=== PATIENT | female | born 1990 | race Caucasian/White ===

== ENCOUNTER → 2022-04-18 18:57 | Outpatient (CLI) | payer BC, SELFPAY ==
--- NOTE | 2022-04-18 19:15 | DI.RAD_ITS ---
Exam(s) XR WRIST RT COMPL NAVICULAR EXAM: XR WRIST RT COMPL NAVICULAR CLINICAL HISTORY: wrist injury TECHNIQUE: COMPARISON: No exams were available for comparison FINDINGS: Four views were obtained. There is a fixation screw in the navicular,this appears well seated. Ther e is no evidence of acute fracture or dislocation. IMPRESSION: RADIATION DOSE DELIVERED: Total DLP
--- NOTE | 2022-04-18 19:42 | DI.VRAD_ITS ---
PROCEDURE INFORMATION: Exam: XR Right Wrist Exam date and time: 04/18/2022 7:29 PM Age: 32 years old Clinical indication: Injury or trauma; Fall; Sprain or strain; Right; Injury date: 04/18/22; Prior surgery; Surgery date: 6+ months; Surgery type: 2015 wrist; Additional info: Injury right wrist TECHNIQUE: Imaging protocol: Radiologic exam of the Right wrist. Views: 3 or more views. COMPARISON: No relevant prior studies available. FINDINGS: Bones/joints: No acute fractures are identified. Variable pitch screw fixation of the scaphoid without gross hardware complication. Carpal relationships are normal. Distal radioulnar alignment is normal. No blastic or lytic lesions. No gross erosive changes. Soft tissues: No periostitis or osteolysis. No gross soft tissue abnormalities. No radiopaque foreign bodies. IMPRESSION: No acute findings. Dictated and Authenticated by: Shimon Payne MD. Ordering:ANGELO Orantes MD
== END ==
LOC: LBN 19:12 → DI 19:17
PROVIDERS: Visit Provider Physician Assistant
DX: S69.91XA Unspecified injury of right wrist, hand and finger(s), initial encounter (principal); X58.XXXA Exposure to other specified factors, initial encounter
CPT/HCPCS: 73110

== ENCOUNTER 2022-07-14 15:40 | Outpatient (REF) | payer BC, SELFPAY ==
[2022-07-14 18:54] LABS: HCT 41.5 % (36.0-46.0); HGB 13.7 g/dL (11.2-15.7); MCH 28.9 pg (27.0-33.0); MCV 88 fL (80-95); Platelet Count 367 10^3/uL (130-400); RBC 4.74 10^6/uL (3.93-5.22); RDW 13.2 % (11.7-14.6); RDW-SD 42.3 fL
[2022-07-14 19:11] LABS: Hemoglobin A1C 4.9 % (<5.7)
[2022-07-14 19:12] LABS: Iron 43 ug/dL (50-170); Total Iron Binding Capacity 339 ug/dL (250-450); Transferrin Sat 13 % (15-50)
[2022-07-14 19:35] LABS: Vitamin D 25 Total 76.1 ng/mL (30-100)
[2022-07-14 20:02] LABS: Ferritin 86 ng/mL (8-252); TSH 2.91 uIU/mL (0.36-3.74); Vitamin B12 630 pg/mL (193-986)
[2022-07-14 20:05] LABS: Folate > 20.0 ng/mL (8.6-20.0)
[2022-07-14 20:21] LABS: FREE T4 0.98 ng/dL (0.76-1.46)
== END 2022-07-14 15:41 | disposition home or self-care (01) ==
LOC: NCHCN 15:40
PROVIDERS: Visit Provider Nurse Practitioner Family
DX: R53.83 Other fatigue (principal)
CPT/HCPCS: 82306; 85027; 82607; 82728; 82746; 83036; 83540; 83550; 84439; 84443

== ENCOUNTER 2022-08-25 17:09 | Outpatient (REF) | payer BC, MEDICAID, SELFPAY ==
[2022-08-25 18:49] LABS: Abs Immature Grans 0.05 10^3/uL (0.0-0.06); Absolute Basophil Count 0.04 10^3/uL (0.0-0.2); Absolute Eosinophil Count 0.18 10^3/uL (0.0-0.7); Absolute Lymphocyte Count 2.76 10^3/uL (1.2-3.4); Absolute Monocyte Count 0.62 10^3/uL (0.1-0.8); Absolute Neutrophil Count 6.75 10^3/uL (1.2-6.7); Basophils % 0.4; Eosinophils % 1.7; HCT 42.7 % (36.0-46.0); HGB 14.3 g/dL (11.2-15.7); Immature Grans % 0.5; Lymphocytes % 26.5; MCH 29.4 pg (27.0-33.0); MCHC 33.5 % (32.0-36.0); MCV 88 fL (80-95); Neutrophils % 64.9; Platelet Count 366 10^3/uL (130-400); RBC 4.87 10^6/uL (3.93-5.22); RDW 13.2 % (11.7-14.6); RDW-SD 42.5 fL
== END 2022-08-25 17:10 | disposition home or self-care (01) ==
LOC: NCHCN 17:09
PROVIDERS: Visit Provider Nurse Practitioner Family
DX: R53.83 Other fatigue (principal); Z86.2 Personal history of diseases of the blood and blood-forming organs and certain disorders involving the immune mechanism
CPT/HCPCS: 85025

== ENCOUNTER 2022-09-04 18:40 | Outpatient (CLI) | payer BC, MEDICAID, SELFPAY ==
--- NOTE | 2022-09-04 18:30 | RT.EKG_ITS ---
APPROVED REPORT Exam: Resting ECG Reason for Exam: Palpitations Patient Location: O HR:83 bpm ECG Measurements Heart Rate 83 AXIS [place] 144 P 44 QRSd 103 QRS 32 QT 378 T 27 QTc 445 Conclusion Sinus rhythm...normal P axis, V-rate 50- 99 Occasional PVCs RSR prime V1 and V2, normal variant
== END 2022-09-04 18:41 | disposition home or self-care (01) ==
LOC: DI.CM 18:40
PROVIDERS: Visit Provider Nurse Practitioner Family
DX: R07.89 Other chest pain (principal)
CPT/HCPCS: 93010

== ENCOUNTER 2022-09-09 03:09 | Outpatient (CLI) | payer BC, MEDICAID, SELFPAY ==
[2022-09-09 15:49] LABS: Anion Gap 11.6 mmol/L (3-11); BUN 13 mg/dL (7-18); CO2 20.4 mmol/L (21.0-32.0); CREATININE 1.3 mg/dL (0.55-1.02); Calcium 9.4 mg/dL (8.5-10.1); Chloride 107 mmol/L (98-107); Estimated GFR 56.03 (mL/min/1.73m2); Glucose 115 mg/dL (74-106); Magnesium 1.9 mg/dL (1.8-2.4); Potassium 3.3 mmol/L (3.5-5.1); Sodium 139 mmol/L (136-145)
== END 2022-09-09 03:10 | disposition home or self-care (01) ==
PROVIDERS: Visit Provider Nurse Practitioner Family
DX: R00.2 Palpitations (principal); E03.9 Hypothyroidism, unspecified; F41.8 Other specified anxiety disorders
CPT/HCPCS: 36415; 80048; 83735

== ENCOUNTER 2022-09-12 19:41 | Emergency (ER) | payer BC, MEDICAID, SELFPAY ==
[2022-09-12] VITALS (19 sets, daily range): BP systolic 106–123; BP diastolic 50–75; PULSE 77–93; RESP 15–27; O2SAT 98–100
--- NOTE | 2022-09-12 19:30 | RT.EKG_ITS ---
APPROVED REPORT Exam: Resting ECG Reason for Exam: Palpitations Patient Location: E HR:83 bpm ECG Measurements Heart Rate 83 AXIS ME 141 P 40 QRSd 99 QRS 4 QT 384 T 4 QTc 453 Conclusion Sinus rhythm...normal P axis, V-rate 60- 99 Multiple ventricular premature complexes...V complexes w/ short R-R intervls Low voltage, precordial leads...precordial leads <1.0mV Normal Fine Nonspecific ST-T changes
--- NOTE | 2022-09-12 20:05 | ED.GENADUL_ITS ---
Discharge Plan Disposition Patient Disposition: Home Discharge Details Clinical Impression: Palpitations Primary Care Provider: Marli Conner ED Provider: Shirlene Olivas Home Meds and New Rx's Prescriptions: Continued acetazolamide 250 mg tablet 250 mg PO DAILY dextroamphetamine-amphetamine [Adderall XR] 20 mg capsule,extended release 24hr 20 mg PO DAILY escitalopram oxalate 20 mg tablet 20 mg PO DAILY ferrous sulfate [Iron (ferrous sulfate)] 325 mg (65 mg iron) tablet 65 mg PO DAILY norethindrone-e.estradiol-iron [Uzma Fe 06/06 (28)] 1 mg-20 mcg (21)/75 mg (7) tablet 1 tab PO DAILY loratadine 10 mg tablet 10 mg PO DAILY pantoprazole 40 mg tablet,delayed release (DR/EC) 80 mg PO DAILY Rx Instructions: 20 mg AM - 20 mg PM sertraline 25 mg tablet 25 mg PO DAILY montelukast [Singulair] 10 mg tablet 10 mg PO DAILY levothyroxine [Synthroid] 50 mcg tablet 50 mcg PO DAILY cholecalciferol (vitamin D3) 125 mcg (5,000 unit) capsule 125 mcg PO DAILY topiramate 100 mg tablet 150 mg PO DAILY Discharge Instructions Instructions: Heart Palpitations (ED) Additional Instructions: At this time no evidence for heart abnormality, you were observed for over 2 hours here in the emergency department and maintained normal sinus rhythm. This may be due to anxiety. Follow up with primary care provider in 3-5 days. Return to ED sooner if any worsening or concerns. Increase oral fluids. No evidence of infection on your lab work. No evidence of blood clots or infection in your lungs. Referrals: Marli Conner [Primary Care Provider] - 3 days Discharge Data Discharge Date/Time-TO BE ENTERED AT DEPARTURE: 09/12/22 22:40 Medical Decision Making 32-year-old female with a past medical history of iron deficiency anemia who is on control who is a non-smoker presents to the ER with chief complaint of palpitations and headache which began earlier on Heart rate upon arrival is 78 and normal sinus rhythm. No ectopy. Work-up ordered including CBC CMP TSH D-dimer urinalysis UDS EKG. Her blood cell count 11.01, neutrophil 7.24 D-dimer slightly elevated at 554, will order CT and rule out PE TSH within normal limits, urine drug screen negative. Troponin less than 50 potassium 3.3, 40 mEq potassium p.o. was given. Patient was given a liter of fluid and 0.5 of lorazepam. Patient feels better after reevaluation. Discussed home care follow-up care she verbalized understanding. This text was generated using [employer] system, please disregard any oddities of phrase or misspellings. Medical Records Medical records reviewed: Yes I reviewed the patient's medical records. Imaging Data Radiologic Study: Imaging: CT Scan Radiologist's impression: FINDINGS: Pulmonary arteries: There is motion artifact. No pulmonary embolism is identified. Aorta: Evaluation of the ascending thoracic aorta is limited secondary to motion. No aneurysm. Lungs: Unremarkable. No consolidation. No masses. Pleural spaces: Unremarkable. No pneumothorax. No pleural effusion. Heart: No pericardial effusion. Lymph nodes: Unremarkable. No enlarged lymph nodes. Bones/joints: Unremarkable. No acute fracture. Soft tissues: There is some wall prominence to the distal esophagus which should be correlated with any concern for esophagitis. There is increased density within the stomach. This is usually secondary to ingested products but should be correlated with any concern for blood products. There is hepatic steatosis. IMPRESSION: 1. No pulmonary embolism identified. 2. Some wall prominence to the distal esophagus which should be correlated with any concern for esophagitis. 3. There is increased density within the stomach. This is usually secondary to ingested products but should be correlated with any concern for blood products. 4. Hepatic steatosis. Other findings/details as above. Thank you for allowing us to participate in the care of your patient. Dictated and Authenticated by: Jessica Wilson MD Lab Data Lab results reviewed: Yes I reviewed the patient's lab results. Labs: Laboratory Tests Range/Units 09/12/22 09/12/22 09/12/22 20:00 20:00 20:00 WBC (4.4-10.8) 10^3/uL 11.01 H RBC (3.93-5.22) 10^6/uL 4.84 Hgb (11.2-15.7) g/dL 13.8 Hct (36.0-46.0) % 41.8 MCV (80-95) fL 86 MCH (27.0-33.0) pg 28.5 MCHC (32.0-36.0) % 33.0 RDW (11.7-14.6) % 13.1 Plt Count (130-400) 10^3/uL 327 MPV (8.0-11.0) fL 8.8 Immature Gran % 0.4 Neutrophils % 65.8 Lymphocytes % 26.6 Monocytes % 5.4 Eosinophils % 1.3 Basophils % 0.5 Nucleated RBC % (0.0-0.3) % 0.0 Absolute Neutrophils (1.2-6.7) 10^3/uL 7.24 H Absolute Lymphocytes (1.2-3.4) 10^3/uL 2.93 Absolute Monocytes (0.1-0.8) 10^3/uL 0.59 Absolute Eosinophils (0.0-0.7) 10^3/uL 0.14 Absolute Basophils (0.0-0.2) 10^3/uL 0.06 D-Dimer (<500) ng/mlFEU 554 H Sodium (136-145) mmol/L 138 Potassium (3.5-5.1) mmol/L 3.3 L Chloride (98-107) mmol/L 106 Carbon Dioxide (21.0-32.0) mmol/L 22.9 Anion Gap (3-11) mmol/L 9.1 BUN (7-18) mg/dL 12 Creatinine (0.55-1.02) mg/dL 1.1 H Est GFR (CKD-EPI 2020) (mL/min/1.73m2) 68.47 Glucose (74-106) mg/dL 92 Calcium (8.5-10.1) mg/dL 9.2 Magnesium (1.8-2.4) mg/dL 2.0 Total Bilirubin (0.2-1.0) mg/dL 0.2 AST (15-37) U/L 20 ALT (14-59) U/L 35 Alkaline Phosphatase (46-116) U/L 95 Troponin I (<or=60) ng/L < 50 Total Protein (6.4-8.2) g/dL 7.7 Albumin (3.4-5.0) g/dL 3.4 TSH (0.36-3.74) uIU/mL 1.71 Urine Opiates Screen (Negative) Urine Methadone Screen (Negative) Ur Barbiturates Screen (Negative) Ur Tricyclics Screen (Negative) Ur Amphetamines Screen (Negative) U Benzodiazepines Scrn (Negative) Urine Cocaine Screen (Negative) Ur THC Screen (Negative) Range/Units 09/12/22 20:14 WBC (4.4-10.8) 10^3/uL RBC (3.93-5.22) 10^6/uL Hgb (11.2-15.7) g/dL Hct (36.0-46.0) % MCV (80-95) fL MCH (27.0-33.0) pg MCHC (32.0-36.0) % RDW (11.7-14.6) % Plt Count (130-400) 10^3/uL MPV (8.0-11.0) fL Immature Gran % Neutrophils % Lymphocytes % Monocytes % Eosinophils % Basophils % Nucleated RBC % (0.0-0.3) % Absolute Neutrophils (1.2-6.7) 10^3/uL Absolute Lymphocytes (1.2-3.4) 10^3/uL Absolute Monocytes (0.1-0.8) 10^3/uL Absolute Eosinophils (0.0-0.7) 10^3/uL Absolute Basophils (0.0-0.2) 10^3/uL D-Dimer (<500) ng/mlFEU Sodium (136-145) mmol/L Potassium (3.5-5.1) mmol/L Chloride (98-107) mmol/L Carbon Dioxide (21.0-32.0) mmol/L Anion Gap (3-11) mmol/L BUN (7-18) mg/dL Creatinine (0.55-1.02) mg/dL Est GFR (CKD-EPI 2020) (mL/min/1.73m2) Glucose (74-106) mg/dL Calcium (8.5-10.1) mg/dL Magnesium (1.8-2.4) mg/dL Total Bilirubin (0.2-1.0) mg/dL AST (15-37) U/L ALT (14-59) U/L Alkaline Phosphatase (46-116) U/L Troponin I (<or=60) ng/L Total Protein (6.4-8.2) g/dL Albumin (3.4-5.0) g/dL TSH (0.36-3.74) uIU/mL Urine Opiates Screen (Negative) Negative Urine Methadone Screen (Negative) Negative Ur Barbiturates Screen (Negative) Negative Ur Tricyclics Screen (Negative) Negative Ur Amphetamines Screen (Negative) Negative U Benzodiazepines Scrn (Negative) Negative Urine Cocaine Screen (Negative) Negative Ur THC Screen (Negative) Negative HPI General Mode of arrival: ambulatory . Date/Time Provider Initiated Documentation: 09/12/22 19:42 . Limitations to Documentation: no limitations . Information obtained by: patient, RN notes reviewed and old records reviewed . HPI Narrative: 32-year-old female with a past medical history of iron deficiency anemia who is on control who is a non-smoker presents to the ER with chief complaint of palpitations and headache which began earlier on . She reports she is under a lot of stress. She also endorses some anxiety and feels that she is having a period she did take some migraine medicine prior to arrival. Denies any fever chills problems urinating or any other associated symptoms. Related Data Home Medications Medication Instructions Recorded Confirmed acetazolamide 250 mg tablet 250 mg PO DAILY 04/18/22 09/12/22 cholecalciferol (vitamin D3) 125 125 mcg PO DAILY 04/18/22 09/12/22 mcg (5,000 unit) capsule dextroamphetamine-amphetamine ER 20 mg PO DAILY 04/18/22 09/12/22 20 mg 24hr capsule,extend release (Adderall XR) escitalopram oxalate 20 mg tablet 20 mg PO DAILY 04/18/22 09/12/22 ferrous sulfate 325 mg (65 mg 65 mg PO DAILY 04/18/22 09/12/22 iron) tablet (Iron (ferrous sulfate)) levothyroxine 50 mcg tablet 50 mcg PO DAILY 04/18/22 09/12/22 (Synthroid) loratadine 10 mg tablet 10 mg PO DAILY 04/18/22 09/12/22 montelukast 10 mg tablet 10 mg PO DAILY 04/18/22 09/12/22 (Singulair) norethindrone 1 mg-ethinyl 1 tab PO DAILY 04/18/22 09/12/22 estradiol 20 mcg (21)-iron 75 mg (7) tablet (Uzma Fe 06/06 ()) pantoprazole 40 mg tablet,delayed 80 mg PO DAILY 04/18/22 09/12/22 release sertraline 25 mg tablet 25 mg PO DAILY 04/18/22 09/12/22 topiramate 100 mg tablet 150 mg PO DAILY 04/28/22 09/12/22 Allergies Allergy/AdvReac Type Severity Reaction Status Date / Time shellfish derived Allergy Severe Anaphylaxis Verified 09/12/22 19:49 General Stated Complaint: Palpitatns GISELE: 2 Review of Systems All systems reviewed & are unremarkable except as noted in HPI and below Constitutional Constitutional: Reports headache(s) ENT Ears, Nose, Mouth, and Throat: Reports headache(s) Cardiovascular Cardiovascular: Reports palpitations and Denies dyspnea Respiratory Respiratory: Denies cough and Denies dyspnea Gastrointestinal Gastrointestinal: Denies abdominal pain, Denies diarrhea, Reports nausea and Denies vomiting Neurologic Neurologic: Reports headache(s) Endocrine Endocrine: Reports palpitations PFSH All Active Problems (Updated 09/12/22 @ 22:21 by Shirlene Olivas NP) Palpitations (Acute) Sprain of right wrist (Acute) Social History Smoking/Tobacco Use Status: Never Smoking risk assessment performed?: Yes Substance use type: does not use Exam Narrative Exam Narrative: Constitutional: Alert and oriented x3. Appears stated age. Obese body habitus. Head: Normocephalic, no trauma. Eyes: Pupils PERRL, Red reflex noted, EOM's intact. Eyelids symmetrical without lesions, discharge, or swelling. ENT: Bilateral TM's WNL, External ear normal to inspection, no mastoid TTP, swelling, or erythema, Nasal turbinates WNL, no nasal discharge. Normal dentition, Posterior pharynx WNL, no exudate. Chest: RRR, Normal S1, S2, distal pulses intact. Resp: Lungs clear to auscultation bilaterally, no wheezes, rales, or rhonchi. Abdomen: Soft, non-distended, Normoactive bowel sounds all 4 quads. Musculoskeletal: Normal gait, 5/5 strength to all four extremities. Skin: No suspicious rashes or lesions. Capillary refill less than 2 sec. Neurologic: Cranial nerves II-XII intact. Alert and oriented x 3. Motor: No deficits noted. Sensory: Intact bilaterally all 4 extremities. Reflexes: DTR's intact bilaterally.. Hematologic/Lymphatic: No ecchymosis, no lymphadenopathy. Course Vital Signs Vital signs: Respiratory Effort Normal 09/12/22 19:44 Pain Level 5 09/12/22 19:44
[2022-09-12 20:07] LABS: Abs Immature Grans 0.04 10^3/uL (0.0-0.06); Absolute Eosinophil Count 0.14 10^3/uL (0.0-0.7); Absolute Lymphocyte Count 2.93 10^3/uL (1.2-3.4); Absolute Monocyte Count 0.59 10^3/uL (0.1-0.8); Basophils % 0.5; Eosinophils % 1.3; HCT 41.8 % (36.0-46.0); HGB 13.8 g/dL (11.2-15.7); Immature Grans % 0.4; Lymphocytes % 26.6; MCH 28.5 pg (27.0-33.0); MCV 86 fL (80-95); MPV 8.8 fL (8.0-11.0); Monocytes % 5.4; Neutrophils % 65.8; Platelet Count 327 10^3/uL (130-400); RBC 4.84 10^6/uL (3.93-5.22); RDW 13.1 % (11.7-14.6); RDW-SD 40.9 fL; WBC 11.01 10^3/uL (4.4-10.8)
[2022-09-12 20:08] LABS: Absolute Basophil Count 0.06 10^3/uL (0.0-0.2); Absolute Neutrophil Count 7.24 10^3/uL (1.2-6.7)
[2022-09-12] MEDS: LORazepam 2 MG/ML VIAL 0.5 MG IVP (20:21)
[2022-09-12] MEDS: Normal Saline 1,000 ML 1000 ML IV (20:21)
--- NOTE | 2022-09-12 20:30 | DI.CT_ITS ---
Exam(s) CT CHEST PE CTA EXAM: CT CHEST PE CTA CLINICAL HISTORY: Palpitations, elevated dimer. TECHNIQUE: Imaging Protocol: Axial CT angiography was performed with multi-slice acquisition and mu lti-planar and/or 3D reconstructions. CONTRAST MATERIAL: Intravenous: Omnipaque 350 contrast volume:100 mL COMPARISON: No exams were available for comparison FINDINGS: The examination is limited due to patient motion artifact. Tracheobronchial tree: Patent where visualized. Pulmonary parenchyma: No consolidation or dominant measurable mass. No architectural distortion. Pulmonary Arteries: No evidence of filling defect to suggest pulmonary emboli. Mediastinum and Claudine: No dominant adenopathy or fluid collection. The esophagus is unremarkable. Visualized thyroid gland: Unremarkable. Pleura: No effusion or pneumothorax. Heart: The heart is not dilated. No coronary artery calcifications are seen. No pericardial effusion. Aorta: Thoracic aorta non-dilated. No evidence of dissection. Upper abdomen: There is increased density material in the stomach. This may be due to ingested food . Please correlate for any concern for blood products. Soft tissues: Unremarkable. Bones: Within normal limits for the patient's age. IMPRESSION: 1. The examination is limited due to patient motion artifact. 2. No evidence of pulmonary embolism, thoracic aortic dissection or aneurysm. 3. Increased density material in the stomach. This likely is due to ingested products but should be correlated with any concern for blood products. RADIATION DOSE DELIVERED: 604.81mGy.cm Total DLP DATA REPOSITORY: All CT scans at this facility are submitted to the National Radiology Data Registry (NRDR) Dose Index Registry (DIR) with the [employer] (ACR). RADIATION OPTIMIZATION: All CT scans at this facility use at least one of these dose optimization te chniques: automated exposure control; mA and/or kV adjustment per patient size (includes targeted exa ms where dose is matched to clinical indication); or iterative reconstruction.
[2022-09-12 20:32] LABS: ALT 35 U/L (14-59); AST 20 U/L (15-37); Albumin 3.4 g/dL (3.4-5.0); Alkaline Phosphatase 95 U/L (46-116); Anion Gap 9.1 mmol/L (3-11); BUN 12 mg/dL (7-18); Bilirubin, Total 0.2 mg/dL (0.2-1.0); CO2 22.9 mmol/L (21.0-32.0); CREATININE 1.1 mg/dL (0.55-1.02); Calcium 9.2 mg/dL (8.5-10.1); Chloride 106 mmol/L (98-107); Estimated GFR 68.47 (mL/min/1.73m2); Glucose 92 mg/dL (74-106); Potassium 3.3 mmol/L (3.5-5.1); Sodium 138 mmol/L (136-145); TSH (W/Ref FT4) 1.71 uIU/mL (0.36-3.74); Total Protein 7.7 g/dL (6.4-8.2); Troponin I < 50 ng/L (<or=60)
[2022-09-12 20:36] LABS: D-Dimer 554 ng/mlFEU (<500)
[2022-09-12] MEDS: Potassium Chloride 20 MEQ TABCR 40 MEQ PO (20:52)
[2022-09-12 21:06] LABS: *AMPHETAMINES SCREEN URINE Negative (Negative); *BARBITURATES SCREEN URINE Negative (Negative); *BENZODIAZEPINES SCREEN URINE Negative (Negative); Cannabinoids THC Negative (Negative); Cocaine Screen,Urine Negative (Negative); METHADONE URINE SCREEN Negative (Negative); OPIATES URINE SCREEN Negative (Negative); Tricyclic Antidepressants Negative (Negative)
[2022-09-12] MEDS: Omnipaque 350 MG/ML 100 ML BTL IJ (21:38)
[2022-09-12] MEDS: Normal Saline - Diluent 50 ML VIAL IJ (21:39)
--- NOTE | 2022-09-12 22:18 | DI.VRAD_ITS ---
PROCEDURE INFORMATION: Exam: CTA Chest With Contrast Exam date and time: 09/12/2022 9:39 PM Age: 32 years old Clinical indication: Other: Palpitations elevated ddimer TECHNIQUE: Imaging protocol: Computed tomographic angiography of the chest with contrast. 3D rendering (Not supervised by radiologist): MIP and/or 3D reconstructed images were created by the technologist. Contrast material: 350; Contrast volume: 100 ml; Contrast route: INTRAVENOUS (IV); COMPARISON: No relevant prior studies available. FINDINGS: Pulmonary arteries: There is motion artifact. No pulmonary embolism is identified. Aorta: Evaluation of the ascending thoracic aorta is limited secondary to motion. No aneurysm. Lungs: Unremarkable. No consolidation. No masses. Pleural spaces: Unremarkable. No pneumothorax. No pleural effusion. Heart: No pericardial effusion. Lymph nodes: Unremarkable. No enlarged lymph nodes. Bones/joints: Unremarkable. No acute fracture. Soft tissues: There is some wall prominence to the distal esophagus which should be correlated with any concern for esophagitis. There is increased density within the stomach. This is usually secondary to ingested products but should be correlated with any concern for blood products. There is hepatic steatosis. IMPRESSION: 1. No pulmonary embolism identified. 2. Some wall prominence to the distal esophagus which should be correlated with any concern for esophagitis. 3. There is increased density within the stomach. This is usually secondary to ingested products but should be correlated with any concern for blood products. 4. Hepatic steatosis. Other findings/details as above. Dictated and Authenticated by: Jessica Wilson MD. Ordering:JASKARAN Garber MD
== END 2022-09-12 22:40 | disposition home or self-care (01) ==
PROVIDERS: Emergency Provider Registered Nurse Emergency; PCP Nurse Practitioner Family
DX: R00.2 Palpitations (principal); R51.9 Headache, unspecified; R79.1 Abnormal coagulation profile; E66.9 Obesity, unspecified
CPT/HCPCS: 71275; 80053; 80307; 81025; 93005; 96361; 96374; 99285; 83735; 84443; 84484; 85025; 85379; 93010; 99284; J2060; J3490

== ENCOUNTER 2022-09-18 18:20 | Outpatient (REF) | payer BC, MEDICAID, SELFPAY ==
[2022-09-18 19:34] LABS: BUN 14 mg/dL (7-18); Calcium 9.5 mg/dL (8.5-10.1); Chloride 107 mmol/L (98-107); Estimated GFR 76.76 (mL/min/1.73m2); Glucose 112 mg/dL (74-106); Potassium 3.4 mmol/L (3.5-5.1); Sodium 138 mmol/L (136-145)
== END 2022-09-18 18:21 | disposition home or self-care (01) ==
LOC: NCHCN 18:20
PROVIDERS: PCP Nurse Practitioner Family; Visit Provider Nurse Practitioner Family
DX: R79.89 Other specified abnormal findings of blood chemistry (principal); R89.8 Other abnormal findings in specimens from other organs, systems and tissues
CPT/HCPCS: 80048

== ENCOUNTER 2022-09-25 09:00 | Outpatient (RCR) | payer BC, MEDICAID, SELFPAY ==
--- NOTE | 2022-09-25 09:00 | HOLTER_ITS ---
APPROVED REPORT Conclusion This is a 48-hour Holter monitor ordered for palpitations Rhythm throughout was sinus with an average heart rate of 88. Minimum was 65, maximum 135 A total of 9 PVCs were seen. There was 1 ventricular couplet There were no supraventricular dysrhythmias, no atrial fibrillation, no SVT, no high-grade AV block, no pauses greater than 3 seconds Patient symptoms were reported which did not correlate with any dysrhythmia
== END 2022-10-15 23:59 | disposition home or self-care (01) ==
LOC: CARDOPNVT 09:00
PROVIDERS: PCP Nurse Practitioner Family; Visit Provider Nurse Practitioner Family
DX: R00.2 Palpitations (principal)
CPT/HCPCS: 93225; 93226

== ENCOUNTER 2022-10-02 17:10 | Outpatient (REF) | payer BC, MEDICAID, SELFPAY ==
[2022-10-02 19:06] LABS: Source Nasal/Nares
[2022-10-02 19:34] LABS: Anion Gap 12.3 mmol/L (3-11); BUN 10 mg/dL (7-18); CO2 20.7 mmol/L (21.0-32.0); Calcium 8.8 mg/dL (8.5-10.1); Chloride 106 mmol/L (98-107); Estimated GFR 76.76 (mL/min/1.73m2); Glucose 125 mg/dL (74-106); Potassium 3.2 mmol/L (3.5-5.1); Sodium 139 mmol/L (136-145)
[2022-10-02 20:23] LABS: COVID-19 PCR Negative (Negative)
== END 2022-10-02 17:11 | disposition home or self-care (01) ==
LOC: NCHCN 17:10
PROVIDERS: PCP Nurse Practitioner Family; Visit Provider Nurse Practitioner Family
DX: R79.89 Other specified abnormal findings of blood chemistry (principal); R53.83 Other fatigue; J06.9 Acute upper respiratory infection, unspecified; Z20.822 Contact with and (suspected) exposure to COVID-19
CPT/HCPCS: 80048; 87635

== ENCOUNTER 2022-10-04 18:44 | Emergency (ER) | payer BC, MEDICAID, SELFPAY ==
--- NOTE | 2022-10-04 18:45 | RT.EKG_ITS ---
APPROVED REPORT Exam: Resting ECG Reason for Exam: chest heaviness Patient Location: E HR:102 bpm ECG Measurements Heart Rate 102 AXIS [place] 136 P 65 QRSd 88 QRS 37 QT 329 T 29 QTc 429 Conclusion Sinus tachycardia...rate> 99 Probable left atrial enlargement...P >50mS, <-0.10mV V1 Normal Bethany I have reviewed and interpreted ECG and agree with software generated interpretation.
[2022-10-04 18:48] VITALS: BP 121/66; PULSE 101; RESP 18; TEMP 37.4; O2SAT 98
--- NOTE | 2022-10-04 19:24 | W.ED.GENAD ---
Discharge Plan Disposition Patient Disposition: Home Condition: Improving Discharge Details Clinical Impression: Asthma exacerbation Primary Care Provider: Marli Conner ED Provider: Melo Carl [place] Meds and New Rx's Prescriptions: New prednisone 20 mg tablet 40 mg PO HS Qty: 8 0RF Continued acetazolamide 250 mg tablet 250 mg PO DAILY dextroamphetamine-amphetamine [Adderall XR] 20 mg capsule,extended release 24hr 20 mg PO DAILY escitalopram oxalate 20 mg tablet 20 mg PO DAILY ferrous sulfate [Iron (ferrous sulfate)] 325 mg (65 mg iron) tablet 65 mg PO DAILY norethindrone-e.estradiol-iron [Uzma Fe 06/06 (28)] 1 mg-20 mcg (21)/75 mg (7) tablet 1 tab PO DAILY loratadine 10 mg tablet 10 mg PO DAILY pantoprazole 40 mg tablet,delayed release (DR/EC) 80 mg PO DAILY Rx Instructions: 20 mg AM - 20 mg PM sertraline 25 mg tablet 25 mg PO DAILY Patient Comments: not taking montelukast [Singulair] 10 mg tablet 10 mg PO DAILY levothyroxine [Synthroid] 50 mcg tablet 50 mcg PO DAILY cholecalciferol (vitamin D3) 125 mcg (5,000 unit) capsule 125 mcg PO DAILY topiramate 100 mg tablet 150 mg PO DAILY buspirone 10 mg Tablet 10 mg PO BID Discharge Instructions Instructions: Asthma (ED) Additional Instructions: You were seen for a mild asthma exacerbation which responded to 1 DuoNeb treatment. However, given frequent use of Xopenex will place on a prednisone burst with prescription sent to your pharmacy to [facility] pick[facility] tomorrow. Your chest x-ray looked clear. Please follow-up with primary care next week for recheck. Return to ED for increasing need for Xopenex, new or worsening chest pain, worsening shortness of breath, mental status change, other concerns. Medical Decision Making Patient presenting to ED with increasing shortness of breath and wheezing despite using Xopenex inhaler. She does have history of asthma. She developed URI type symptoms a few days ago which has progressed to increased wheeze and shortness of breath. Has never been hospitalized and per patient never on steroids other than her Flovent inhaler. Negative COVID by her report 2 days ago. Will trial with DuoNeb, p.o. prednisone. Will obtain chest x-ray and reevaluate. Patient aeration much improved and wheezing resolved after DuoNeb treatment. Chest x-ray per my review and preliminary radiology read negative. Patient to continue Flovent and Xopenex with use of spacer. Will be placed on a short prednisone burst. Follow-up with primary care and/or pulmonology that she follows at [facility]. Return precautions discussed. HPI General Mode of arrival: ambulatory. Date/Time Provider Initiated Documentation: 10/04/22 19:24. Limitations to Documentation: no limitations. Information obtained by: patient. HPI Narrative: Patient presents to ED with increased shortness of breath and wheezing despite using her Xopenex inhaler throughout the day. Patient does have history of asthma but has never been hospitalized and reports no prior steroids in the past. She does not smoke. She began with mild URI type symptoms Thursday. She was seen in PCP office for blood work but asked them to do a COVID PCR which by report it is negative. Patient has since developed increased shortness of breath, wheezing, chest tightness. Denies any chest pain. Denies any fever she is aware of. Continues to have mild congestion and sore throat. Related Data Home Medications Medication Instructions Recorded Confirmed acetazolamide 250 mg tablet 250 mg PO DAILY 04/18/22 10/04/22 cholecalciferol (vitamin D3) 125 125 mcg PO DAILY 04/18/22 10/04/22 mcg (5,000 unit) capsule dextroamphetamine-amphetamine ER 20 mg PO DAILY 04/18/22 10/04/22 20 mg 24hr capsule,extend release (Adderall XR) escitalopram oxalate 20 mg tablet 20 mg PO DAILY 04/18/22 10/04/22 ferrous sulfate 325 mg (65 mg 65 mg PO DAILY 04/18/22 10/04/22 iron) tablet (Iron (ferrous sulfate)) levothyroxine 50 mcg tablet 50 mcg PO DAILY 04/18/22 10/04/22 (Synthroid) loratadine 10 mg tablet 10 mg PO DAILY 04/18/22 10/04/22 montelukast 10 mg tablet 10 mg PO DAILY 04/18/22 10/04/22 (Singulair) norethindrone 1 mg-ethinyl 1 tab PO DAILY 04/18/22 10/04/22 estradiol 20 mcg (21)-iron 75 mg (7) tablet (Uzma Fe 06/06 (28)) pantoprazole 40 mg tablet,delayed 80 mg PO DAILY 04/18/22 10/04/22 release sertraline 25 mg tablet 25 mg PO DAILY 04/18/22 10/04/22 topiramate 100 mg tablet 150 mg PO DAILY 04/28/22 10/04/22 buspirone 10 mg tablet 10 mg PO BID 10/04/22 10/04/22 prednisone 20 mg tablet 40 mg PO HS #8 tabs 10/04/22 Previous Rx's Medication Instructions Recorded prednisone 20 mg tablet 40 mg PO HS #8 tabs 10/04/22 Allergies Allergy/AdvReac Type Severity Reaction Status Date / Time shellfish derived Allergy Severe Anaphylaxis Verified 10/04/22 18:51 General Stated Complaint: RespSymp GISELE: 3 Review of Systems Narrative: Per HPI PFSH All Active Problems (Updated 10/04/22 @ 20:59 by Melo Carl MD) Asthma exacerbation (Acute) Palpitations (Acute) Sprain of right wrist (Acute) Medical History Asthma Depression GERD (gastroesophageal reflux disease) Hypothyroid Social History Smoking/Tobacco Use Status: Never Smoking risk assessment performed?: Yes Substance use type: does not use Exam Narrative Exam Narrative: Const: WDWN female in NAD. HEENT: NC/AT. Normal facial exam. Eyes: Normal conjunctiva and sclera. Neck: Supple. Trachea midline. Lungs: Normal respiratory effort. Lungs with diffuse wheeze throughout. Cor: RRR without murmur/gallop. Good radial pulses. Neuro: A+O x 3. Normal speech, mentation, gait. Cranial nerves II - XII grossly intact. No gross motor or sensory deficit. Ext: No C/C/E. Skin: Warm and dry without rash. Course Vital Signs Vital signs: Vital Signs Temperature 99.3 F 10/04/22 18:48 Pulse 101 H 10/04/22 18:48 Respiratory Rate 18 10/04/22 18:48 Blood Pressure 121/66 10/04/22 18:48 Pulse Oximetry 98 10/04/22 18:48 Temperature 99.3 F 10/04/22 18:48 Temperature Source Oral 10/04/22 18:48 Pulse 101 H 10/04/22 18:48 Respiratory Rate 18 10/04/22 18:48 Respiratory Effort Normal, Non-Labored 10/04/22 18:50 Blood Pressure 121/66 10/04/22 18:48 Pulse Oximetry 98 10/04/22 18:48 Oxygen Delivery Method Room Air 10/04/22 18:48 Oxygen Flow Rate 0 10/04/22 18:48
--- NOTE | 2022-10-04 19:30 | DI.RAD_ITS ---
Exam(s) XR CHEST 2V PA LATERAL EXAM: XR CHEST 2V PA LATERAL CLINICAL HISTORY: SOB TECHNIQUE: 2D digital imaging was performed of the chest. Two images were obtained. PA and lateral views were obtained. COMPARISON: No exams were available for comparison FINDINGS: MEDIASTINUM: Normal. HEART: Normal. PULMONARY VASCULATURE: Normal. LUNGS: Clear. PLEURAL SPACE: No pleural effusion or pneumothorax. BONE:Within normal limits for the patient's age. OTHER FINDINGS:Normal. IMPRESSION: No acute pulmonary findings. DATA REPOSITORY: RADIATION DOSE DELIVERED:
[2022-10-04] MEDS: Albuterol/Ipratropium 3 ML UPD VIAL UPD (19:54)
[2022-10-04] MEDS: predniSONE 20 MG TAB 60 MG PO (19:54)
--- NOTE | 2022-10-04 20:54 | DI.VRAD_ITS ---
PROCEDURE INFORMATION: Exam: XR Chest Exam date and time: 10/04/2022 8:20 PM Age: 32 years old Clinical indication: Shortness of breath; Patient HX: SOB TECHNIQUE: Imaging protocol: Radiologic exam of the chest. Views: 2 views. COMPARISON: CT CHEST PE CTA 09/12/2022 9:39 PM FINDINGS: Lungs: Unremarkable. No consolidation. Pleural spaces: Unremarkable. No pleural effusion. No pneumothorax. Heart/Mediastinum: Unremarkable. No cardiomegaly. Bones/joints: Unremarkable. IMPRESSION: No acute findings. Dictated and Authenticated by: Omar Miller MD. Ordering:JÚNIOR Alejo MD
== END 2022-10-04 21:36 | disposition home or self-care (01) ==
PROVIDERS: Emergency Provider Emergency Medicine; PCP Nurse Practitioner Family
DX: J45.901 Unspecified asthma with (acute) exacerbation (principal); R07.89 Other chest pain
CPT/HCPCS: 93005; 99284; 71046; 93010; J7512; J7620

== ENCOUNTER 2022-10-15 18:47 | Outpatient (REF) | payer BC, MEDICAID, SELFPAY ==
[2022-10-15 19:47] LABS: Anion Gap 12.2 mmol/L (3-11); BUN 14 mg/dL (7-18); CO2 20.8 mmol/L (21.0-32.0); CREATININE 1.1 mg/dL (0.55-1.02); Calcium 9.1 mg/dL (8.5-10.1); Chloride 109 mmol/L (98-107); Estimated GFR 68.47 (mL/min/1.73m2); Glucose 89 mg/dL (74-106); Potassium 3.4 mmol/L (3.5-5.1); Sodium 142 mmol/L (136-145)
== END 2022-10-15 18:48 | disposition home or self-care (01) ==
LOC: NCHCN 18:47
PROVIDERS: PCP Nurse Practitioner Family; Visit Provider Physician Assistant Medical
DX: E87.6 Hypokalemia (principal)
CPT/HCPCS: 80048

== ENCOUNTER 2022-11-04 12:45 | Outpatient (REF) | payer BC, MEDICAID, SELFPAY ==
[2022-11-04 15:07] LABS: Potassium 3.9 mmol/L (3.5-5.1)
== END 2022-11-04 12:46 | disposition home or self-care (01) ==
LOC: NCHCN 12:45
PROVIDERS: PCP Nurse Practitioner Family; Visit Provider Nurse Practitioner Family
DX: K21.9 Gastro-esophageal reflux disease without esophagitis (principal); E87.6 Hypokalemia
CPT/HCPCS: 84132

== ENCOUNTER 2022-12-02 16:18 | Outpatient (REF) | payer BC, MEDICAID, SELFPAY ==
[2022-12-02 19:16] LABS: Potassium 3.4 mmol/L (3.5-5.1)
== END 2022-12-02 16:19 | disposition home or self-care (01) ==
LOC: NCHCN 16:18
PROVIDERS: PCP Nurse Practitioner Family; Visit Provider Nurse Practitioner Family
DX: E87.6 Hypokalemia (principal)
CPT/HCPCS: 84132

== ENCOUNTER 2022-12-20 18:50 | Emergency (ER) | payer OTHER, SELFPAY ==
[2022-12-20 19:05] VITALS: BP 125/71; PULSE 84; RESP 18; TEMP 36.7; O2SAT 100
--- NOTE | 2022-12-20 20:45 | DI.RAD_ITS ---
Exam(s) XR ANKLE LT COMPLETE EXAM: XR ANKLE LT COMPLETE CLINICAL HISTORY: Left ankle pain TECHNIQUE: 2D digital imaging was performed. Three views. COMPARISON: No exams were available for comparison FINDINGS: BONES: No acute fracture is present. No bony destructive lesion is seen. Heel spur JOINTS:The ankle mortise is normally aligned. SOFT TISSUE: Swelling IMPRESSION: Soft tissue swelling. Heel spur. DATA REPOSITORY: RADIATION DOSE DELIVERED:
--- NOTE | 2022-12-20 21:03 | DI.VRAD_ITS ---
PROCEDURE INFORMATION: Exam: XR Left Ankle Exam date and time: 12/20/2022 8:36 PM Age: 32 years old Clinical indication: Other: Left ankle pain TECHNIQUE: Imaging protocol: Radiologic exam of the left ankle. Views: 3 or more views. COMPARISON: No relevant prior studies available. FINDINGS: Bones/joints: Mild plantar calcaneal spurring. Osseous alignment is normal. No acute fracture. No significant arthritic change. Soft tissues: Moderate diffuse soft tissue swelling. IMPRESSION: Mild plantar calcaneal spurring and diffuse soft tissue swelling of the ankle. Otherwise unremarkable. Dictated and Authenticated by: Gunner Aaron MD. Ordering:BURKE Robins MD
--- NOTE | 2022-12-20 21:19 | ED.GENADUL_ITS ---
Discharge Plan Disposition Patient Disposition: Home Discharge Details Clinical Impression: Left ankle sprain Primary Care Provider: Marli Conner ED Provider: Chapito Best Home Meds and New Rx's Prescriptions: No Action acetazolamide 250 mg tablet 250 mg PO DAILY dextroamphetamine-amphetamine [Adderall XR] 20 mg capsule,extended release 24hr 20 mg PO DAILY escitalopram oxalate 20 mg tablet 20 mg PO DAILY ferrous sulfate [Iron (ferrous sulfate)] 325 mg (65 mg iron) tablet 65 mg PO DAILY norethindrone-e.estradiol-iron [Uzma Fe 06/06 (28)] 1 mg-20 mcg (21)/75 mg (7) tablet 1 tab PO DAILY loratadine 10 mg tablet 10 mg PO DAILY pantoprazole 40 mg tablet,delayed release (DR/EC) 80 mg PO DAILY Rx Instructions: 20 mg AM - 20 mg PM montelukast [Singulair] 10 mg tablet 10 mg PO DAILY levothyroxine [Synthroid] 50 mcg tablet 50 mcg PO DAILY topiramate 100 mg tablet 150 mg PO DAILY Vyvanse 30 mg capsule 30 mg PO DAILY Patient Comments: TAKE 1 CAPSULE BY MOUTH EVERY DAY buspirone 10 mg Tablet 10 mg PO BID Discharge Instructions Instructions: Ankle Sprain (ED), R.I.C.E. Treatment (ED) Additional Instructions: Please wear the walking boot for the next 2 weeks but she may perform weightbearing and activities as tolerated by pain and discomfort. If healing well you can put a ucqx-isx-dlpiedr lace up ankle brace on and wear this for an additional 2 to 4 weeks. If you are healing well you may follow-up with your primary care provider for reassessment but if not seeming to have any improvement please follow-up with orthopedics for recheck of your symptoms and further interventions as needed. You may continue to apply ice to help with swelling and pain and take [id number]-[id number] pain medications as needed. Referrals: Marli Conner [Primary Care Provider] - Discharge Data Discharge Date/Time-TO BE ENTERED AT DEPARTURE: 12/20/22 22:09 Medical Decision Making Medical Records Medical records narrative: Patient presenting to the emergency department for chief complaint of left ankle pain. Patient reports that she was hiking 2 days ago and had multiple falls and twist of the left ankle. She has lower extremity abrasions which she states are healing well and denies any other injury or trauma. Physical exam shows lateral tenderness to palpation of the left ankle with some diffuse swelling. Patient does have painful range of motion but does state that she has been able to apply some weightbearing to ankle. While I suspect sprain given level of swelling and bony tenderness will perform radiological imaging Review of radiological imaging and radiologist interpretation shows no acute findings. Patient was placed in a walking boot and encouraged to follow-up if not improving. Patient otherwise to continue [id number] medications. After discussion of diagnosis and plan of care patient has no further needs, questions, or concerns and states clear understanding to return to the emergency department for any worsening symptoms. This documentation was generated using [employer] dictation system, please disregard any oddities of phrase or misspellings. Imaging Data Radiologic Study: Imaging: X-Ray Radiologist's impression: Exam(s) PROCEDURE INFORMATION: Exam: XR Left Ankle Exam date and time: 12/20/2022 8:36 PM Age: 32 years old Clinical indication: Other: Left ankle pain TECHNIQUE: Imaging protocol: Radiologic exam of the left ankle. Views: 3 or more views. COMPARISON: No relevant prior studies available. FINDINGS: Bones/joints: Mild plantar calcaneal spurring. Osseous alignment is normal. No acute fracture. No significant arthritic change. Soft tissues: Moderate diffuse soft tissue swelling. IMPRESSION: Mild plantar calcaneal spurring and diffuse soft tissue swelling of the ankle. Otherwise unremarkable. HPI General Mode of arrival: ambulatory . Date/Time Provider Initiated Documentation: 12/20/22 20:13 . Limitations to Documentation: no limitations . Information obtained by: patient and RN notes reviewed . History of Present Illness 32 year old F presents to the emergency department with the chief complaint of Left ankle injury, described as moderate, Quality is described as aching, and is localized to the left and lower extremity. Patient reports no radiation. Patient started experiencing this day(s) (2) and it has been constant. Rest improves symptom(s), Movement worsens symptoms . Patient notes no other symptoms.. Related Data Home Medications Medication Instructions Recorded Confirmed acetazolamide 250 mg tablet 250 mg PO DAILY 04/18/22 12/20/22 dextroamphetamine-amphetamine ER 20 mg PO DAILY 04/18/22 12/20/22 20 mg 24hr capsule,extend release (Adderall XR) escitalopram oxalate 20 mg tablet 20 mg PO DAILY 12/02/22 08/05/23 ferrous sulfate 325 mg (65 mg 65 mg PO DAILY 04/18/22 12/20/22 iron) tablet (Iron (ferrous sulfate)) levothyroxine 50 mcg tablet 50 mcg PO DAILY 04/18/22 12/20/22 (Synthroid) loratadine 10 mg tablet 10 mg PO DAILY 04/18/22 12/20/22 montelukast 10 mg tablet 10 mg PO DAILY 04/18/22 12/20/22 (Singulair) norethindrone 1 mg-ethinyl 1 tab PO DAILY 04/18/22 12/20/22 estradiol 20 mcg (21)-iron 75 mg (7) tablet (Uzma Fe 06/06 (28)) pantoprazole 40 mg tablet,delayed 80 mg PO DAILY 04/18/22 12/20/22 release topiramate 100 mg tablet 150 mg PO DAILY 04/28/22 12/20/22 buspirone 10 mg tablet 10 mg PO BID 10/04/22 12/20/22 lisdexamfetamine 30 mg capsule 30 mg PO DAILY 12/20/22 12/20/22 (Vyvanse) Allergies Allergy/AdvReac Type Severity Reaction Status Date / Time shellfish derived Allergy Severe Anaphylaxis Verified 12/20/22 19:13 General Stated Complaint: Orthopedic GISELE: 4 Review of Systems Narrative: 6 systems reviewed and unremarkable except what is marked below. Musculoskeletal Musculoskeletal: Reports as per HPI, Reports arthralgias, Reports joint swelling, Reports limited range of motion, Denies numbness, Reports stiffness and Denies tingling Integumentary/Breasts Skin/Breast: Reports wounds Neurologic Neurologic: Denies numbness and Denies tingling PFSH All Active Problems Left ankle sprain (Acute) Sprain of right wrist (Acute) Medical History Asthma Depression GERD (gastroesophageal reflux disease) Hypothyroid Social History Smoking/Tobacco Use Status: Never Smoking risk assessment performed?: Yes Alcohol Intake: current Alcohol Intake frequency: holidays/special occasions only Drug use: Never Substance use type: does not use Housing: apartment Do you feel safe at home: Yes Do you feel safe in your relationship?: Yes Exam Const General: cooperative, no acute distress and not ill appearing Orientation: alert, awake and oriented x3 HENMT Mouth: moist mucous membranes Resp Effort & Inspection: normal respiratory effort, able to speak in complete sentences and no respiratory distress Cardio Rate: regular rate Rhythm: regular rhythm Pulses: posterior tibial pulses present and dorsalis pedis present Neuro General: patient alert, patient awake, patient oriented x3, moves all extremities and no focal motor deficits Sensory Exam: no sensory deficits noted Extrem General: normal exam except as noted Right lower extremity: lower leg Details: abrasion Left lower extremity: lower leg Details: abrasion and ankle Details: normal to inspection, tenderness Location: of the lateral malleolus, swelling Details: diffusely and abnormal ROM Details: pain with active ROM and with range as follows (Decreased flexion and extension secondary to pain) Course Vital Signs Vital signs: Vital Signs Temperature 36.7 C 12/20/22 19:05 Pulse 84 12/20/22 19:05 Respiratory Rate 18 12/20/22 19:05 Blood Pressure 125/71 12/20/22 19:05 Pulse Oximetry 100 12/20/22 19:05 Temperature 36.7 C 12/20/22 19:05 Temperature Source Temporal Artery Scan 12/20/22 19:05 Pulse 84 12/20/22 19:05 Respiratory Rate 18 12/20/22 19:05 Respiratory Effort Normal, Non-Labored 12/20/22 20:11 Blood Pressure 125/71 12/20/22 19:05 Blood Pressure Position Sitting 12/20/22 19:05 Pulse Oximetry 100 12/20/22 19:05 Oxygen Delivery Method Room Air 12/20/22 19:05 Oxygen Flow Rate 0 12/20/22 19:05 Pain Level 9 12/20/22 20:11 PAWSS Have you Been Recently Intoxicated or Drunk Within the Last 30 days?: No Have you Ever Experienced Previous Episodes of Alcohol Withdrawal?: No Have you ever Experienced Withdrawal Seizures?: No Have you ever Experienced Delirium Tremens(DT)s?: No Have you ever undergone Alcohol Rehabilitation Treatment (i.e, inpt ot outpatient treatment programs)?: No Have you ever Experienced Blackouts?: No Have you ever Combined Alcohol with other Downers within the last 90 days?: No Have you ever Combined Alcohol with any other Substance of Abuse during the last 90 days?: No Positive Blood Alcohol level on Presentation? [PCS.BAL]: No Evidence of Increased Autonomic Activity (i.e. HR>120, tremor, sweating, agitation, nausea)?: No Result: 0
--- NOTE | 2022-12-21 09:42 | NUR.NOTE ---
Nursing Note: Accessed pt chart for [facility] billing.
== END 2022-12-20 22:09 | disposition home or self-care (01) ==
PROVIDERS: Emergency Provider Nurse Practitioner Family; PCP Nurse Practitioner Family
DX: M77.32 Calcaneal spur, left foot (principal); S93.402A Sprain of unspecified ligament of left ankle, initial encounter; X50.1XXA Overexertion from prolonged static or awkward postures, initial encounter; Y93.01 Activity, walking, marching and hiking; Y92.89 Other specified places as the place of occurrence of the external cause; Y99.9 Unspecified external cause status
CPT/HCPCS: 81025; 99283; 73610

== ENCOUNTER 2022-12-23 20:29 | Outpatient (REF) | payer BC, MEDICAID, SELFPAY ==
[2022-12-23 18:12] LABS: Anion Gap 11.1 mmol/L (3-11); BUN 12 mg/dL (7-18); CO2 22.9 mmol/L (21.0-32.0); CREATININE 1.1 mg/dL (0.55-1.02); Calcium 9.6 mg/dL (8.5-10.1); Chloride 105 mmol/L (98-107); Estimated GFR 68.47 (mL/min/1.73m2); Glucose 107 mg/dL (74-106); Potassium 4.2 mmol/L (3.5-5.1); Sodium 139 mmol/L (136-145)
== END 2022-12-23 20:30 | disposition home or self-care (01) ==
LOC: NCHCN 20:29
PROVIDERS: PCP Nurse Practitioner Family; Visit Provider Nurse Practitioner Family
DX: E87.6 Hypokalemia (principal); M25.572 Pain in left ankle and joints of left foot
CPT/HCPCS: 80048